=== PATIENT | male | born 1945 | race Caucasian/White ===

== ENCOUNTER 2019-11-01 10:59 | Emergency (ER) | payer OTHER ==
[~2019-11-01] VITALS: Ht 170.2 cm; Wt 68.0 kg
== END 2019-11-01 11:50 | disposition home or self-care (01) ==
LOC: ER 10:59
DX: T16.1XXA Foreign body in right ear, initial encounter (principal); W45.8XXA Other foreign body or object entering through skin, initial encounter
CPT/HCPCS: 69200; 99282-25